=== PATIENT | female | born 1975 | race Caucasian/White ===

== ENCOUNTER 2018-01-09 13:19 | Emergency (ER) | payer MEDICAID, OTHER ==
[~2018-01-09] VITALS: Ht 160 cm; Wt 84.0 kg
[2018-01-09 13:20] VITALS: BP 166/105
== END 2018-01-09 15:05 | disposition home or self-care (01) ==
LOC: ED 14:57
DX: L20.84 Intrinsic (allergic) eczema (principal); I10 Essential (primary) hypertension; Z90.49 Acquired absence of other specified parts of digestive tract; Z90.710 Acquired absence of both cervix and uterus
CPT/HCPCS: 99283